=== PATIENT | female | born 1995 | race American Indian/Alaskan Native ===

== ENCOUNTER 2017-12-15 16:15 | Emergency (ER) | payer BC ==
[2017-12-15 16:40] VITALS: RESP 18; BMI 34.5
[2017-12-15] MEDS ORDERED: Sodium Chloride 0.9% 1,000 ML IV STA (16:58)
--- NOTE | 2017-12-15 17:01 | ED PDOC ---
Arrival/HPI - General Chief Complaint: Abdominal Pain Time Seen by Provider: 12/15/17 16:35 - History of Present Illness Narrative History of Present Illness (Text): 22 y/o F p/w lower abdominal pain x 2 days. Pain is sharp, severe, nonradiating , suprapubic, associated with nausea yesterday. LMP 2 weeks ago. Denies fever, chills, chest pain, dyspnea, vomiting, dysuria, hematuria. Went to [facility] [place] [facility] yesterday, had normal labs and urine and discharged home with diagnosis of "pelvic pain." Past Medical History - Infectious Disease Hx of Infectious Diseases: None - Psychiatric Hx Substance Use: No - Surgical History Hx Section: Yes (x1) - Anesthesia Hx Anesthesia: Yes Hx Anesthesia Reactions: No Hx Malignant Hyperthermia: No Family/Social History Family/Social History: No Known Family HX Smoking Status: Never Smoked Hx Alcohol Use: No Hx Substance Use: No Allergies/Home Meds Allergies/Adverse Reactions: Allergies No Known Allergies Allergy (Verified 12/15/17 16:40) Home Medications: Home Meds Medication Instructions Recorded Confirmed Desogestrel-Ethinyl Estradiol 1 tab PO DAILY 12/15/17 12/15/17 [Apri 28 Day Tablet] Review of Systems - Physician Review All systems were reviewed & negative as marked: Yes - Review of Systems Constitutional: absent: Fevers Gastrointestinal: absent: Vomiting Physical Exam - Physical Exam Narrative Physical Exam (Text): Gen: NAD Head: NC/AT Eyes: PERRL ENT: MMM Neck: Supple Chest: No tenderness CV: Regular rate Lungs: CTA b/l Abd: Suprapubic tenderness without guarding or rebound Back: No CVA tenderness Skin: No rash Extremities: No edema Neuro: Alert, no focal deficit Vital Signs Temp Pulse Resp BP Pulse Ox 12/15/17 16:39 98.3 F 82 18 114/62 96 Medical Decision Making ED Course and Treatment: Differential includes UTI, ovarian cyst, ovarian torsion. Labs unremarkable. Pending US. Signed out to ED night team. - Lab Interpretations Lab Results: 12/15/17 17:25 12/15/17 17:25 Lab Results 12/15/17 17:25: Sodium 142, Potassium 4.0, Chloride 106, Carbon Dioxide 26, Anion Gap 14, BUN 12, Creatinine 0.7, Est GFR ( Amer) > 60, Est GFR (Non- Af Amer) > 60, Random Glucose 97, Calcium 9.0, Total Bilirubin 0.3, AST 24, ALT 22, Alkaline Phosphatase 72, Total Protein 7.8, Albumin 4.1, Globulin 3.7, Albumin/Globulin Ratio 1.1, Lipase 73 12/15/17 17:25: WBC 6.2, RBC 4.46, Hgb 11.0 L, Hct 33.1 L, MCV 74.2 L, MCH 24.7 L, MCHC 33.2, RDW 15.9 H, Plt Count 327, MPV 8.8, Gran % 57.3, Lymph % (Auto) 35.7 H, [place] % (Auto) 5.8, Eos % (Auto) 1.0 L, Baso % (Auto) 0.2, Gran # 3.57, Lymph # (Auto) 2.2, [place] # (Auto) 0.4, Eos # (Auto) 0.1, Baso # (Auto) 0.01 12/15/17 17:25: Urine Color Yellow, Urine Appearance Clear, Urine pH 8.5, Ur Specific [place] 1.015, Urine Protein Negative, Urine Glucose (UA) Negative, Urine Ketones Negative, Urine Blood Negative, Urine Nitrate Negative, Urine Bilirubin Negative, Urine Urobilinogen 1.0 H, Ur Leukocyte Esterase Negative, Urine HCG, Qual Negative - RAD Interpretation Radiology Orders: 12/15/17 16:57 TRANSVAGINAL [US] Stat - Medication Orders Current Medication Orders: Discontinued Medications Sodium Chloride (Sodium Chloride 0.9%) 1,000 mls @ 999 mls/hr IV .Q1H1M STA Stop: 12/15/17 17:58 Last Admin: 12/15/17 17:20 Dose: 999 mls/hr eMAR Start Stop Document 12/15/17 17:20 HI (Rec: 12/15/17 17:37 HI [email or web address] Intravenous Solution Start Date 12/15/17 Start Time 17:20 Ketorolac Tromethamine (Toradol) 30 mg IVP STAT STA Stop: 12/15/17 16:59 Last Admin: 12/15/17 17:20 Dose: 30 mg MAR Pain Assessment Document 12/15/17 17:20 HI (Rec: 12/15/17 17:37 HI [email or web address] Pain Reassessment Is this a pain reassessment? No Sleep Is patient sleeping during reassessment? No Presence of Pain Presence of Pain Yes Location Pain Location Body Site Abdomen IVP Administration Document 12/15/17 17:20 HI (Rec: 12/15/17 17:37 HI [email or web address] Charges for Administration # of IVP Administrations 1 Disposition/Present on Arrival - Present on Arrival Any Indicators Present on Arrival: No History of DVT/PE: No History of Uncontrolled Diabetes: No Urinary Catheter: No History of Decub. Ulcer: No History Surgical Site Infection Following: None - Disposition Have Diagnosis and Disposition been Completed?: No Diagnosis: Pelvic pain Disposition Time: 18:47 Condition: STABLE Forms: [employer] (Indonesian)
[2017-12-15 17:46] LABS: BASO # 0.01 K/mm3 (0.0-2.0); BASO % 0.2 % (0.0-3.0); EOS # 0.1 (0.0-0.7); GRAN # 3.57 (1.4-6.5); GRAN % 57.3 % (50.0-68.0); LYMPH # 2.2 (1.2-3.4); LYMPH % 35.7 % (22.0-35.0); MEAN CELL VOLUME 74.2 fl (80.0-105.0); MEAN CORPUSCULAR HEMOGLOBIN 24.7 pg (25.0-35.0); MEAN CORPUSCULAR HGB CONC 33.2 g/dl (31.0-37.0); MEAN PLATELET VOLUME 8.8 fl (7.0-11.0); MONO # 0.4 (0.1-0.6); MONO % 5.8 % (1.0-6.0); RBC 4.46 10^6/uL (3.5-6.1); RED CELL DISTRIBUTION WIDTH 15.9 % (11.5-14.5); WHITE BLOOD COUNT 6.2 10^3/ul (4.5-11.0)
[2017-12-15 17:49] LABS: PH,URINE 8.5 (4.7-8.0); URINE BILIRUBIN NEGATIVE (NEGATIVE); URINE BLOOD NEGATIVE (NEGATIVE); URINE GLUCOSE (UA) NEGATIVE (NEGATIVE); URINE LEUKOCYTE ESTERASE NEGATIVE Leu/uL (NEGATIVE); URINE PROTEIN NEGATIVE mg/dL (<30 mg/dL)
[2017-12-15 17:51] LABS: URINE APPEARANCE CLEAR (CLEAR); URINE COLOR YELLOW (YELLOW)
[2017-12-15 17:53] LABS: HCG,QUALITATIVE URINE NEGATIVE (NEGATIVE)
[2017-12-15 18:19] LABS: ALB/GLOB RATIO 1.1 (1.1-1.8); ALBUMIN 4.1 g/dL (3.0-4.8); ALT/SGPT 22 U/L (7-56); AST/SGOT 24 U/L (14-36); BLOOD UREA NITROGEN 12 mg/dL (7-21); GFR AFRICAN-AMERICAN > 60; GFR NON-AFRICAN AMERICAN > 60; LIPASE 73 U/L (23-300)
--- NOTE | 2017-12-15 19:07 | ED PDOC ---
Physical Exam Vital Signs Reviewed: Yes Vital Signs Temp Pulse Resp BP Pulse Ox 12/15/17 20:29 71 18 108/66 100 12/15/17 16:39 98.3 F 82 18 114/62 96 Temperature: Afebrile Blood Pressure: Normal Pulse: Regular Respiratory Rate: Normal Appearance: Positive for: Well-Appearing, Non-Toxic, Comfortable Pain Distress: None Mental Status: Positive for: Alert and Oriented X 3 - Systems Exam Head: Present: Atraumatic, Normocephalic Pupils: Present: PERRL Extroacular Muscles: Present: EOMI Conjunctiva: Present: Normal Mouth: Present: Moist Mucous Membranes Neck: Present: Normal Range of Motion Respiratory/Chest: Present: Clear to Auscultation, Good Air Exchange. No: Respiratory Distress, Accessory Muscle Use Cardiovascular: Present: Regular Rate and Rhythm, Normal S1, S2. No: Murmurs Abdomen: Present: Normal Bowel Sounds. No: Tenderness, Distention, Peritoneal Signs Back: Present: Normal Inspection Upper Extremity: Present: Normal Inspection. No: Cyanosis, Edema Lower Extremity: Present: Normal Inspection. No: Edema Neurological: Present: GCS=15, CN II-XII Intact, Speech Normal Skin: Present: Warm, Dry, Normal Color. No: Rashes Psychiatric: Present: Alert, Oriented x 3, Normal Insight, Normal Concentration Medical Decision Making ED Course and Treatment: 12/15/17 19:07 Case signed out to me by Dr. Castellanos, pending Ultrasound results. 12/15/17 19:24 Transvaginal US reviewed, shows: Uterus/cervix: Unremarkable. Endometrial thickness measures 3.8 mm.. Right ovary: Unremarkable. No mass. Normal blood flow. Left ovary: Unremarkable. No mass. Normal blood flow. Free fluid: No free fluid. IMPRESSION: Normal sized ovaries with vascular flow 12/15/17 20:34 Upon reevaluation, patient feels no pain. Pt notes discomfort felt like cramps associated with recent diarrhea. Pt feels she may have eaten something out that provoked symptoms. Pt states currently she is fine. - Lab Interpretations Lab Results: 12/15/17 17:25 12/15/17 17:25 Lab Results 12/15/17 17:25: Sodium 142, Potassium 4.0, Chloride 106, Carbon Dioxide 26, Anion Gap 14, BUN 12, Creatinine 0.7, Est GFR ( Amer) > 60, Est GFR (Non- Af Amer) > 60, Random Glucose 97, Calcium 9.0, Total Bilirubin 0.3, AST 24, ALT 22, Alkaline Phosphatase 72, Total Protein 7.8, Albumin 4.1, Globulin 3.7, Albumin/Globulin Ratio 1.1, Lipase 73 12/15/17 17:25: WBC 6.2, RBC 4.46, Hgb 11.0 L, Hct 33.1 L, MCV 74.2 L, MCH 24.7 L, MCHC 33.2, RDW 15.9 H, Plt Count 327, MPV 8.8, Gran % 57.3, Lymph % (Auto) 35.7 H, [place] % (Auto) 5.8, Eos % (Auto) 1.0 L, Baso % (Auto) 0.2, Gran # 3.57, Lymph # (Auto) 2.2, [place] # (Auto) 0.4, Eos # (Auto) 0.1, Baso # (Auto) 0.01 12/15/17 17:25: Urine Color Yellow, Urine Appearance Clear, Urine pH 8.5, Ur Specific [place] 1.015, Urine Protein Negative, Urine Glucose (UA) Negative, Urine Ketones Negative, Urine Blood Negative, Urine Nitrate Negative, Urine Bilirubin Negative, Urine Urobilinogen 1.0 H, Ur Leukocyte Esterase Negative, Urine HCG, Qual Negative - RAD Interpretation Radiology Orders: 12/15/17 16:57 TRANSVAGINAL [US] Stat - Medication Orders Current Medication Orders: Discontinued Medications Sodium Chloride (Sodium Chloride 0.9%) 1,000 mls @ 999 mls/hr IV .Q1H1M STA Stop: 12/15/17 17:58 Last Admin: 12/15/17 17:20 Dose: 999 mls/hr eMAR Start Stop Document 12/15/17 17:20 HI (Rec: 12/15/17 17:37 [email or web address] Intravenous Solution Start Date 12/15/17 Start Time 17:20 Ketorolac Tromethamine (Toradol) 30 mg IVP STAT STA Stop: 12/15/17 16:59 Last Admin: 12/15/17 17:20 Dose: 30 mg MAR Pain Assessment Document 12/15/17 17:20 HI (Rec: 12/15/17 17:37 HI [facility] [email or web address] Pain Reassessment Is this a pain reassessment? No Sleep Is patient sleeping during reassessment? No Presence of Pain Presence of Pain Yes Location Pain Location Body Site Abdomen IVP Administration Document 12/15/17 17:20 HI (Rec: 12/15/17 17:37 HI [facility] [email or web address] Charges for Administration # of IVP Administrations 1 - Scribe Statement The provider has reviewed the documentation as recorded by the Scribe Sapna Echevarria All medical record entries made by the Scribe were at my direction and personally dictated by me. I have reviewed the chart and agree that the record accurately reflects my personal performance of the history, physical exam, medical decision making, and the department course for this patient. I have also personally directed, reviewed, and agree with the discharge instructions and disposition. Disposition/Present on Arrival - Present on Arrival Any Indicators Present on Arrival: No History of DVT/PE: No History of Uncontrolled Diabetes: No Urinary Catheter: No History of Decub. Ulcer: No History Surgical Site Infection Following: None - Disposition Have Diagnosis and Disposition been Completed?: Yes Diagnosis: Gastroenteritis Disposition: HOME/ ROUTINE Disposition Time: 20:30 Patient Plan: Discharge Patient Problems: Current Active Problems Problem Status Onset Gastroenteritis Acute Condition: STABLE Discharge Instructions (ExitCare): Gastroenteritis (ED) Additional Instructions: Drink plenty of liquids/avoid fatty foods/bland diet next few days/follow up with your doctor this week Forms: [employer] (Portuguese)
[2017-12-15 20:30] VITALS: BP 108/66; PULSE 71; O2SAT 100
[2017-12-15 20:56] VITALS: TEMP 98.2
--- NOTE | 2017-12-16 11:53 | US ---
Date of service: 12/15/2017 HISTORY: Pelvic pain, cyst in torsion suspected. LMP 11/27/2017. COMPARISON: None available. TECHNIQUE: Transvaginal only. Real -time technique with 2D, duplex and color Doppler FINDINGS: UTERUS: Measures 5 x 3.8 x 8.1 cm. Normal in size and appearance. No fibroid or other mass lesion seen. ENDOMETRIUM: Measures 2.5 mm in diameter. No ultrasound findings to suggest gestational sac, fluid, debris, mass or polyp or other pathologic process within the endometrium. CERVIX: No cervical abnormality identified. RIGHT OVARY: Measures 1.9 x 2 x 2.3 cm. No solid mass. Normal flow. LEFT OVARY: Measures 1.7 x 2.3 x 2.5 cm. No solid mass. Normal flow. FREE FLUID: No significant free fluid noted. OTHER FINDINGS: None. IMPRESSION: Unremarkable pelvic ultrasound. No acute findings. No evidence of adnexal torsion or other pathologic process. Concordant results (preliminary interpretation) provided by [facility]. Procedure Completed: 18:47 Preliminary ([facility]) Report: Dictated and Authenticated: 19:09. Final Interpretation: 11:52. December 16, 2017.
== END 2017-12-15 20:55 | disposition home or self-care (01) ==
LOC: ED 16:15 → MERGE 16:15 → ED 20:55
DX: K52.9 Noninfective gastroenteritis and colitis, unspecified (principal)
CPT/HCPCS: 76830; 80053; 81003; 83690; 84703; 85025; 87086; 96374; 99284; J1885; J7030